=== PATIENT | female | born 1950 | race Two or more races ===

== ENCOUNTER → 2021-05-30 | Outpatient (CLI) | payer MEDICARE ==
[2021-05-30 16:12] LABS: Cholesterol 181 mg/dL (< 200); HDL Cholesterol 63 mg/dL (40-59); LDL Cholesterol 110 mg/dL (< 100); Triglycerides 166 mg/dL (< 150)
== END | disposition home or self-care (01) ==
LOC: LAB 09:41
PROVIDERS: ATTEND Internal Medicine
DX: E11.9 Type 2 diabetes mellitus without complications (principal); I10 Essential (primary) hypertension
CPT/HCPCS: 36415; 80061; 83036

== ENCOUNTER → 2021-12-14 | Outpatient (CLI) | payer MEDICARE ==
[2021-12-14 12:09] LABS: Urine WBC None Seen /hpf (0 - 5)
[2021-12-14 12:56] LABS: Urine Bacteria NONE SEEN /hpf (None Seen); Urine Blood Negative /uL (Negative); Urine Mucus FEW (None Seen); Urine Specific Gravity 1.016 (1.001-1.035)
== END | disposition home or self-care (01) ==
LOC: LAB 12:06
PROVIDERS: ATTEND Internal Medicine
DX: E11.9 Type 2 diabetes mellitus without complications (principal)
CPT/HCPCS: 81001; 82043

== ENCOUNTER → 2022-02-26 | Outpatient (CLI) | payer MEDICARE ==
[2022-02-26 11:45] LABS: Albumin 3.8 g/dL (3.4-5.0); Calcium 9.8 mg/dL (8.5-10.1); Potassium 4.2 mmol/L (3.5-5.1)
[2022-02-26 11:50] LABS: BUN/Creatinine Ratio 18.5; Bilirubin, Total 0.7 mg/dL (0.2-1.0); Total Protein 7.8 g/dL (6.4-8.2)
== END | disposition home or self-care (01) ==
LOC: LAB 10:21
PROVIDERS: ATTEND Internal Medicine
DX: E11.9 Type 2 diabetes mellitus without complications (principal)
CPT/HCPCS: 36415; 80053; 80061

== ENCOUNTER → 2022-05-28 | Outpatient (CLI) | payer MEDICARE ==
[2022-05-28 10:48] LABS: Calcium 9.6 mg/dL (8.5-10.1); Potassium 4.4 mmol/L (3.5-5.1)
[2022-05-28 10:51] LABS: BUN/Creatinine Ratio 21.4
== END | disposition home or self-care (01) ==
LOC: LAB 09:50
PROVIDERS: ATTEND Internal Medicine
DX: N18.30 Chronic kidney disease, stage 3 unspecified (principal)
CPT/HCPCS: 36415; 80048

== ENCOUNTER → 2022-09-04 | Outpatient (CLI) | payer MEDICARE ==
[2022-09-04 10:41] LABS: Hematocrit 40.2 % (36.0-46.0); Hemoglobin 13.2 g/dL (12.2-16.2); Mean Corpuscular Hemoglobin 29.4 pg (28.0-32.0); Mean Corpuscular Hgb Conc. 32.9 g/dL (32.0-36.0); Mean Corpuscular Volume 89.6 fL (80.0-100.0); Red Blood Cells 4.49 10^6/uL (4.0-5.20); Red Cell Distribution Width 14.4 % (11.8-14.3); White Blood Cell 5.5 10^3/uL (4.4-10.8)
[2022-09-04 10:57] LABS: Band Neutrophils % (manual) 0; Basophils % (manual) 0 (0.0-2.0); Blast Cells 0; Metamyelocytes % 0; Myelocytes % 0; Promyelocytes % 0; Reactive Lymphocytes 0
[2022-09-04 11:26] LABS: Eosinophils % (manual) 1 (0-7); Lymphocytes % (manual) 55 (10.0-50.0); Monocytes % (manual) 5 (0-12)
== END | disposition home or self-care (01) ==
LOC: LAB 10:23
PROVIDERS: ATTEND Internal Medicine
DX: Z00.00 Encounter for general adult medical examination without abnormal findings (principal); R73.03 Prediabetes; I10 Essential (primary) hypertension; H93.19 Tinnitus, unspecified ear
CPT/HCPCS: 36415; 83036; 84443; 85007; 85027

== ENCOUNTER → 2022-10-23 | Outpatient (CLI) | payer MEDICARE ==
[2022-10-23 10:56] LABS: Calcium 9.1 mg/dL (8.5-10.1); Potassium 4.2 mmol/L (3.5-5.1)
== END | disposition home or self-care (01) ==
LOC: LAB 09:59
PROVIDERS: ATTEND Internal Medicine
DX: Z12.11 Encounter for screening for malignant neoplasm of colon (principal); E11.9 Type 2 diabetes mellitus without complications
CPT/HCPCS: 36415; 80048; 82570

== ENCOUNTER 2023-03-22 08:52 | Emergency (ER) | payer MEDICARE ==
[~2023-03-22] VITALS: Ht 170.2 cm; Wt 85.0 kg
[2023-03-22 09:17] VITALS: BP 167/96; PULSE 87; RESP 18; TEMP 98.6; O2SAT 96
== END 2023-03-22 09:49 | disposition home or self-care (01) ==
LOC: ER 08:52
DX: M19.071 Primary osteoarthritis, right ankle and foot (principal); E11.9 Type 2 diabetes mellitus without complications; Z88.5 Allergy status to narcotic agent
CPT/HCPCS: 73630

== ENCOUNTER → 2023-04-22 | Outpatient (CLI) | payer MEDICARE ==
[2023-04-22 10:58] LABS: Cholesterol 180 mg/dL (< 200); Triglycerides 125 mg/dL (< 150)
[2023-04-22 10:59] LABS: LDL Cholesterol 92 mg/dL (< 100)
[2023-04-22 11:00] LABS: HDL Cholesterol 57 mg/dL (40-59)
== END | disposition home or self-care (01) ==
LOC: LAB 09:35
PROVIDERS: ATTEND Internal Medicine
DX: Z12.11 Encounter for screening for malignant neoplasm of colon (principal); E11.9 Type 2 diabetes mellitus without complications
CPT/HCPCS: 36415; 80061; 83036

== ENCOUNTER 2024-05-28 10:38 | Emergency (ER) | payer MEDICARE, OTHER ==
[~2024-05-28] VITALS: Ht 170.2 cm; Wt 86.2 kg
[2024-05-28 11:23] VITALS: PULSE 67; RESP 18; O2SAT 98
--- NOTE | 2024-05-28 11:45 | DVH ---
EXAM: CT HEAD WITHOUT CONTRAST HISTORY: HEADACHE COMPARISON: None TECHNIQUE: Axial images of the head were obtained and reformatted in coronal and sagittal planes. All CT scans at this medical facility are performed using dose modulation techniques as appropriate t o a performed exam including the following: Automated exposure control was utilized; adjustment of th e MA and/or KV according to patient size; and use of iterative reconstruction technique. CT Dose: CTDI volume is 58 mGy. Dose-length product is 813 mGy*cm FINDINGS: There is no evidence of acute intracranial hemorrhage, mass, mass effect midline shift. There is no h ydrocephalus or extra-axial fluid collection. There are mild chronic small-vessel white matter ische lizandro changes. Hathaway-white matter differentiation appears maintained. The visualized paranasal sinuses and mastoid air cells are clear. The calvarium is intact. IMPRESSION: 1. No acute intracranial process. HS:Y
--- NOTE | 2024-05-28 16:16 | ED.PDOC ---
HPI (NEURO) HPI Comments 74 year old female presents to the ED with a chief complaint of headache s/p fall onset 3 days. Patient states she fell forward, hit her head and since then has been experiencing headache, dizziness, nausea, bump on LT side forehead. She does not recall if she slipped or experienced a syncopal episode. Patient took Excedrin with no improvement. PMHx DM, HTN, HLD. No other symptoms or modifying factors present at this time. Chief Complaint: Headache Time Seen by MD: 16:04 Primary Care Provider: ANTONI Reviewed Notes: Medications, Allergies Information Source: Patient Mode of Arrival: Ambulatory Severity: Moderate Headache Severity: Moderate Timing: Days Duration: Since onset Prehospital treatment: None Headache Quality: Aching, Sharp Headache Location: Generalized Onset: Other Circumstances: Other (recent fall) History of: DM, Hypertension Modifying factors: Nothing Associated Signs and Symptoms: Headache, Nausea Past Medical History PAST MEDICAL HISTORY: DM, High Lipids, HTN Surgical History: Hysterectomy, Tubal Ligation Surgical History (Other): LT hip replacement = 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 History Family History Family History: Reviewed,noncontributory to illness Social History Smoker: Non-Smoker Alcohol: Occasionally Drugs: Marijuana Lives In: Home Constitutional: denies: chills, diaphoresis, fatigue, fever, malaise, sweats, weakness, others EENTM: denies: blurred vision, double vision, ear bleeding, ear discharge, ear drainage, ear pain, ear ringing, eye pain, eye redness, hearing loss, mouth pain, mouth swelling, nasal discharge, nose bleeding, nose congestion, nose pain, photophobia, tearing, throat pain, throat swelling, voice changes, others Respiratory: denies: cough, hemoptysis, orthopnea, SOB at rest, shortness of breath, SOB with excertion, stridor, wheezing, others Cardiovascular: denies: chest pain, dizzy spells, diaphoresis, Dyspnea on exertion, edema, irregular heart beat, left arm pain, lightheadedness, palpitations, PND, syncope, others Gastrointestinal: reports: nausea; denies: abdomen distended, abdominal pain, blood streaked bowels, constipated, diarrhea, dysphagia, difficulty swallowing, hematemesis, melena, poor appetite, poor fluid intake, rectal bleeding, rectal pain, vomiting, others Genitourinary: denies: abnormal vagina bleeding, burning, dyspareunia, dysuria, flank pain, frequency, hematuria, incontinence, pain, , vagina discharge, urgency, others Neurological: reports: dizziness, headache; denies: fainting, left sided numbness, left sided weakness, numbness, paresthesia, pre-existing deficit, right sided numbness, right sided weakness, seizure, speech problems, tingling, tremors, weakness, others Musculoskeletal: denies: back pain, gout, joint pain, joint swelling, muscle pain, muscle stiffness, neck pain, others Integumetry: denies: bruises, change in color, change in hair/nails, dryness, laceration, lesions, lumps, rash, wounds, others Allergic/Immunocompromised: denies: Difficulty Healing, Frequent Infections, Hives, Itching, others Hematologic/Lymphatic: denies: anemia, blood clots, easy bleeding, easy bruising, swollen glands, others Endocrine: denies: excessive hunger, excessive sweating, excessive thirst, excessive urination, flushing, intolerance to cold, intolerance to heat, unexplained weight gain, unexplained weight loss, others Psychiatric: denies: anxiety, bipolar disorder, depression, hopeless, panic disorder, schizophrenia, sleepless, suicidal, others All Other Systems: Reviewed and Negative Physical Exam General Appearance: No Apparent Distress, Obese HEENT: Normal ENT Inspection, Pharynx Normal, TMs Normal Neck: Full Range of Motion, Non-Tender, Normal, Normal Inspection Respiratory: Chest Non-Tender, Lungs Clear, No Accessory Muscle Use, No Respiratory Distress, Normal Breath Sounds Cardiovascular: No Edema, No JVD, No Murmur, No Gallop, Normal Peripheral Pulses, Regular Rate/Rhythm Breast Exam: Deferred Gastrointestinal: No Organomegaly, Non Tender, No Pulsatile Mass, Normal Bowel Sounds, Soft Genitalia: Deferred Pelvic: Deferred Rectal: Deferred Extremities: No calf tenderness, Normal capillary refill, Normal inspection, Normal range of motion, Non-tender, No pedal edema Neurologic: Alert, legal arbitrator II-XII nml as Tested, No Motor Deficits, Normal Affect, Normal Mood, No Sensory Deficits Cerebellar Function: Normal Reflexes: Normal Skin: Dry, Normal Color, Warm Peripheral Pulses: 1+ carotid (R), 1+ carotid (L) Lymphatic: No Adenopathy EKG EKG : Pulse Rate (adult): 72 Roundup: Normal Cardiac Rhythm: NSR Was a procedure done? Was a procedure done?: No Differential Diagnosis (SZ) Seizure: N/A CVA: Mass Lesion General Weakness: N/A Headache: Post-Traumatic X-Ray, Labs, Meds, VS Vital Signs Date Time Temp Pulse Resp B/P (MAP) Pulse Ox O2 Delivery O2 Flow Rate FiO2 05/28/24 15:03 98.2 82 16 120/91 (101) 98 98.2 05/28/24 11:23 67 18 98 Room Air* 0 21 05/28/24 11:20 97.9 86 18 148/90 (109) 97 05/28/24 11:19 97.9 70 16 145/79 (101) 98 97.9 05/28/24 11:19 70 16 98 Room Air 05/28/24 11:09 [address] [address] Ph: [phone] DIAGNOSTIC IMAGING Diagnostic Imaging Report : [id number] Signed PATIENT: CHELA JUNG ACCT: [id number] UNIT: [id number] : 1950 LOC: ER ROOM / BED: / AGE / SEX: 74 / F ADM STATUS: REG ER SERVICE 1119 ORDERING PHYSICIAN: KARISSA TOBAR MD PROCEDURE(s): HWOCT - HEAD WITHOUT CONTRAST REASON: HEADACHE ORDER NUMBER(s): [id number], ACCESSION NUMBER(s): [id number] EXAM: CT HEAD WITHOUT CONTRAST HISTORY: HEADACHE COMPARISON: None TECHNIQUE: Axial images of the head were obtained and reformatted in coronal and sagittal planes. All CT scans at this medical facility are performed using dose modulation techniques as appropriate to a performed exam including the following: Automated exposure control was utilized; adjustment of the MA and/or KV according to patient size; and use of iterative reconstruction technique. CT Dose: CTDI volume is 58 mGy. Dose-length product is 813 mGy*cm FINDINGS: There is no evidence of acute intracranial hemorrhage, mass, mass effect midline shift. There is no hydrocephalus or extra-axial fluid collection. There are mild chronic small-vessel white matter ischemic changes. Hathaway-white matter differentiation appears maintained. The visualized paranasal sinuses and mastoid air cells are clear. The calvarium is intact. IMPRESSION: 1. No acute intracranial process. HS:Y ATED BY: CRUZ MELO MD DICTATED DATE/TIME: 05/28/24 1143 SIGNED BY: CRUZ MELO MD SIGNED DATE/TIME: 05/28/24 1143 CC: X-Ray, Labs, Meds, VS Comment Course in the emergency department eventful patient had a fall at home two days ago and she is complaining of a headache and dizziness with some nausea happened three days ago The blood pressure is 148/90 with a blood sugar 87 EKG shows normal sinus rhythm at 72 Patient is feeling well her CT head is normal She will be discharged home to follow up with her PCP Time of 1ST Reevaluation: 16:34 Reevaluation 1ST: Unchanged Patient Education/Counseling: Diagnosis, Treatment, Prognosis Family Education/Counseling: No Family Present Additional Information The following tests were ordered, and results were reviewed by me: EKG, CT HEAD WITHOUT CONTRAST I reviewed and agreed with the following test results read by other providers: CT HEAD WITHOUT CONTRAST I discussed treatment and results with medical personnel and: patient Departure 1 Departure Time of Disposition: 16:21 Impression: Primary Impression: Fall at home Qualified Codes: W19.XXXA - Unspecified fall, initial encounter; Y92.009 - Unspecified place in unspecified non-institutional (private) residence as the place of occurrence of the external cause Additional Impression: Forehead contusion Qualified Codes: S00.83XA - Contusion of other part of head, initial encounter Disposition: HOME / SELF CARE / HOMELESS Condition: Fair Additional Instructions: Apply ice pack and take Tylenol for the pain e-Prescriptions Ondansetron Odt 4MG Tab (ZOFRAN PO) 4 Mg Tb 4 MG PO TID for 5 Days, #15 TAB ODT TAB-DISSOLVE IN MOUTH, THEN SWALLOW Prov: KARISSA TOBAR MD 05/28/24 Discharged With: Self Critical Care Note Critical Care Time?: No Stability Stability form required: No Heart Score Heart Score: Heart Score Response (Comments) Value History N/A 0 EKG Normal 0 Age >65 2 Risk Factors 1 or 2 risk factors 1 Troponin N/A 0 Total 3 I personally scribed for KARISSA TOBAR MD ([email or web address]) on 05/28/24 at 16:15. Electronically submitted by Reshma Ho ([email or web address]). I personally scribed for KARISSA TOBAR MD ([email or web address]) on 05/28/24 at 16:16. Electronically submitted by Reshma Ho ([email or web address]). KARISSA TOBAR MD May 28, 2024 16:15
[2024-05-28] MEDS ORDERED: ZOFR4T PO (16:23)
[2024-05-28 16:27] VITALS: BP 122/84; PULSE 86; RESP 16; TEMP 98.6; O2SAT 99
--- NOTE | 2024-05-29 19:14 | ECG ---
[facility] Test Date: 2024-05-28 Test Time: 11:09:57 Pat Name: CHELA JUNG Department: ER Room: Gender: F Galley Boy: [place] : 1950 Requested By: EMERGENCY EMERGENCY Order Number: [id number] Reading MD: Ravindra Luo Measurements Intervals Susan Rate: 72 P: 64 NJ: 164 QRS: 45 QRSD: 93 T: 12 QT: 400 QTc: 438 Interpretive Statements Sinus rhythm Electronically Signed On 05-30-2024 15:58:51 PST by Ravindra Luo Please click the below link to view image of tracing.
== END 2024-05-28 16:31 | disposition home or self-care (01) ==
LOC: ER 10:38
DX: S00.83XA Contusion of other part of head, initial encounter (principal); E11.9 Type 2 diabetes mellitus without complications; E78.5 Hyperlipidemia, unspecified; I10 Essential (primary) hypertension; F12.90 Cannabis use, unspecified, uncomplicated; Z90.710 Acquired absence of both cervix and uterus; Z98.890 Other specified postprocedural states; W18.39XA Other fall on same level, initial encounter; Y93.89 Activity, other specified; Y92.89 Other specified places as the place of occurrence of the external cause; Y99.8 Other external cause status
CPT/HCPCS: 70450; 93005